=== PATIENT | female | born 1980 | race American Indian/Alaskan Native ===

== ENCOUNTER 2019-08-26 13:39 | Outpatient (CLI) | payer OTHER | END 2019-08-26 13:50 | disposition home or self-care (01) | LOC: NST 13:39 | DX: Z34.83 Encounter for supervision of other normal pregnancy, third trimester (principal) ==

== ENCOUNTER 2019-09-09 14:01 | Outpatient (CLI) | payer OTHER | END 2019-09-09 15:13 | disposition home or self-care (01) | LOC: NST 14:01 | DX: Z34.83 Encounter for supervision of other normal pregnancy, third trimester (principal) ==

== ENCOUNTER 2019-09-16 13:55 | Outpatient (CLI) | payer OTHER | END 2019-09-16 15:48 | disposition home or self-care (01) | LOC: NST 13:55 | DX: Z34.83 Encounter for supervision of other normal pregnancy, third trimester (principal) ==

== ENCOUNTER 2019-09-23 13:25 | Outpatient (CLI) | payer OTHER | END 2019-09-23 14:30 | disposition home or self-care (01) | LOC: NST 13:25 | DX: Z34.83 Encounter for supervision of other normal pregnancy, third trimester (principal); I10 Essential (primary) hypertension ==

== ENCOUNTER 2019-10-03 09:09 | Outpatient (CLI) | payer OTHER | END 2019-10-03 11:28 | disposition home or self-care (01) | LOC: NST 09:09 | DX: Z34.83 Encounter for supervision of other normal pregnancy, third trimester (principal) ==

== ENCOUNTER 2019-10-05 06:09 | Inpatient (IN) | payer OTHER ==
[~2019-10-05] VITALS: Ht 162.6 cm; Wt 82.1 kg
[2019-10-05] MEDS ORDERED: ASPIR 8181 MG PO (06:52)
[2019-10-05] MEDS ORDERED: PRENATAL CAPLE1 EAC1 PO (06:52)
[2019-10-05] MEDS ORDERED: LABETALOL HCL200 MG PO (06:53)
== END 2019-10-07 12:22 | disposition home or self-care (01) | DRG 807 ==
LOC: LDR 06:09 → OB/GYN 21:36
PROVIDERS: ADMIT Obstetrics & Gynecology Maternal & Fetal Medicine
PROC: 10E0XZZ Delivery of Products of Conception, External Approach (ICD-10-PCS; principal; 2019-10-05)
PROC: 0HQ9XZZ Repair Perineum Skin, External Approach (ICD-10-PCS; 2019-10-05)
PROC: 4A1HXCZ Monitoring of Products of Conception, Cardiac Rate, External Approach (ICD-10-PCS; 2019-10-05)
PROC: 4A033R1 Measurement of Arterial Saturation, Peripheral, Percutaneous Approach (ICD-10-PCS; 2019-10-05)
DX: O70.1 Second degree perineal laceration during delivery (principal); Z37.0 Single live birth; Z3A.38 38 weeks gestation of pregnancy; Z22.330 Carrier of Group B streptococcus